=== PATIENT | male | born 1960 | race Caucasian/White ===

== ENCOUNTER → 2021-12-20 | Outpatient (CLI) | payer OTHER ==
[~2021-12-20] MED LIST: ASPIRIN325 MG PO; COREG 3.125M3.125 MG PO; IMDUR ER TAB 3030 MG PO; LIPITOR TAB 2020 MG PO; LISINOPRIL5 MG PO; NITROSTAT 0.40.4 MG SL; PLAVIX 75 MG TA75 MG PO
== END ==
LOC: EXRD 12-15 14:30 → HEART 5 14:00
DX: I73.9 Peripheral vascular disease, unspecified (principal); I25.10 Atherosclerotic heart disease of native coronary artery without angina pectoris; I72.4 Aneurysm of artery of lower extremity
CPT/HCPCS: 93922; 93925

== ENCOUNTER → 2021-12-29 | Outpatient (CLI) | payer OTHER | LOC: KOH-I 15:08 | DX: F17.210 Nicotine dependence, cigarettes, uncomplicated (principal); R91.1 Solitary pulmonary nodule; J43.2 Centrilobular emphysema | CPT/HCPCS: 71271 ==